=== PATIENT | female | born 1955 | race Caucasian/White ===

== ENCOUNTER 2017-07-22 16:07 | Inpatient (IN) | payer MEDICARE ==
[~2017-07-22] VITALS: Ht 157.5 cm; Wt 94.6 kg
[2017-07-22] MEDS ORDERED: VIBRAMYCIN 100100 MG PO (16:55)
[2017-07-22] MEDS ORDERED: OXYBUTYNIN CHLOR5 MG PO (16:56)
[2017-07-22 17:04] VITALS: BP 189/81; BMI 37.2
--- NOTE | 2017-07-22 18:15 | NUR ---
IV TO RIGHT FA. 22G. 1 STICK. WILL CONTINUE TO MONTIOR
--- NOTE | 2017-07-22 18:16 | NUR ---
WILL BRING UPDATED MEDICATION LIST TOMORROW.
[2017-07-22 18:42] LABS: BASOPHILS 0.5 % (0-2); EOSINOPHILS 5.2 % (0-7); HEMATOCRIT 40.6 % (36.0-48.0); HEMOGLOBIN 13.2 g/dL (12-16); IMMATURE GRANULOCYTES 0.4 % (0-5); LYMPHOCYTES 28.8 % (15-50); MCHC 32.5 g/dL (31.0-37.0); MCV 86.2 fL (80.0-100.0); MEAN PLATELET VOLUME 9.7 fL (7.4-10.4); MONOCYTES 6.2 % (2-11); NEUTROPHILS 58.9 % (40-80); PLATELET COUNT 214 10x3/uL (130-400); RBC 4.71 10x6/uL (4.00-5.40); RDW 15.5 % (11.5-14.5); WBC 7.9 10x3/uL (4.8-10.8)
[2017-07-22 18:55] LABS: ALBUMIN 3.4 g/dL (3.4-5.0); ANION GAP 15.8 mmol/L (8-16); BILIRUBIN - TOTAL 0.23 mg/dL (0.2-1.3); CALCIUM 8.8 mg/dL (8.5-10.1); CARBON DIOXIDE 21.5 mmol/L (21.0-32.0); CREATININE - SERUM 3.9 mg/dL (0.6-1.3); POTASSIUM - SERUM 4.3 mmol/L (3.5-5.1)
--- NOTE | 2017-07-22 19:33 | NUR ---
ASSESSMENT COMPLETE, A&O. VITALS STABLE. RESPERATIONS EVEN ON RA. IV TO RIGHT FOREARM WITH NS INFUSING AT 75 CC/HR. SITE CLEAN AND DRY. INFORMED PT THAT DR HUMMEL HAS ORDERED FOR A CALDWELL CATH TO BE PLACED, PT STATED THAT SHE IS URINATING JUST AND DOES NOT WANT A CATHETER PLACED. PT DENIES PAIN OR NEEDS, BED LOW, CL IN REACH.
[2017-07-22 20:00] VITALS: BP 151/63
--- NOTE | 2017-07-22 23:05 | NUR ---
TYLENOL 325 MG TAB GIVEN AT PT REQUEST FOR C/O HEADACHE, RATES PAIN AT A 6 ON PAIN SCALE.
--- NOTE | 2017-07-23 00:12 | NUR ---
ASSESSMENT UNCHANGED. VSS, AFEBRILE. RESP EVEN UNLABORED. NO NEEDS VOICED. WILL CONT TO MONITOR.
--- NOTE | 2017-07-23 03:15 | NUR ---
RESTING WITH EYES CLOSED, RESPERATIONS EVEN, NO S/S DISTRESS NOTED.
[2017-07-23 03:57] VITALS: BP 162/72
[2017-07-23 06:42] LABS: PHOSPHOROUS 3.5 mg/dL (2.5-4.9); URIC ACID 7.2 mg/dL (2.6-7.2)
[2017-07-23] MEDS ORDERED: HUMULIN R100 U/ML (08:42)
[2017-07-23] MEDS ORDERED: LANTUS INSULIN10 ML SC (08:43)
--- NOTE | 2017-07-23 09:00 | NUR ---
PATIENT CONTINUES TO REFUSE CALDWELL CATHETER INSERTION AT THIS TIME. NO DISTRESS.
[2017-07-23 09:34] VITALS: BP 174/87
--- NOTE | 2017-07-23 11:05 | NUR ---
1100 PATIENT REFUSED ALL MEDICATIONS STARTED BY . PATIENT IS CONFUSED. 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
--- NOTE | 2017-07-23 11:56 | NUR ---
FSBS 155. 2 UNITS INSULIN PROVIDED ORDERED.
[2017-07-23 12:28] VITALS: Ht 157.5 cm; Wt 94.6 kg
[2017-07-23 13:51] VITALS: BP 182/72
--- NOTE | 2017-07-23 14:14 | NUR ---
RESTING IN BED. NO DISTRESS. PATIENT REMAINS CONFUSED. CALL LIGHT WITHIN REACH.
--- NOTE | 2017-07-23 15:17 | NUR ---
HERE WITH PATIENTS CURRENT MED LIST, SPOKE WITH DEANN ON THE PHONE AND APPROPRIATE CHANGES APPROVED FOR MEDICATIONS.
--- NOTE | 2017-07-23 15:40 | NUR ---
16 FR CALDWELL CATHETER PLACED VIA STERILE TECHNIQUE. 150 CC CLEAR YELLOW URINE RETURNED TO DRAINAGE BAG VIA GRAVITY. SPECIMEN SENT TO LAB. PATIENT TOLERATED CALDWELL CATHETER PLACEMENT WELL. NO DISTRESS.
[2017-07-23 16:16] LABS: APPEARANCE HAZY (CLEAR); BILIRUBIN NEGATIVE (NEGATIVE); COLOR YELLOW (YELLOW); GLUCOSE 250 mg/dL (NEGATIVE); KETONE NEGATIVE (NEGATIVE); LEUKOCYTE ESTERASE NEGATIVE (NEGATIVE); NITRITE NEGATIVE (NEGATIVE); PROTEIN TRACE mg/dL (NEGATIVE); UROBILINOGEN NORMAL (NORMAL)
[2017-07-23 16:22] LABS: AMORPHOUS SEDIMENT >1+ /lpf (NONE SEEN); BACTERIA FEW /hpf (NONE SEEN); EPITHELIAL CELLS 0-5 /hpf (0-5); GRANULAR CAST RARE /lpf (NONE SEEN); HYALINE CAST OCC /lpf (NONE SEEN); MUCUS <1+ /lpf (NONE SEEN); RED CELLS - URINE 0-5 /hpf (0-5); WHITE CELLS - URINE 0-5 /hpf (0-5)
--- NOTE | 2017-07-23 16:44 | NUR ---
FSBS 132. NO INSULIN COVERAGE REQUIRED.
[2017-07-23 16:53] VITALS: BP 181/76
[2017-07-23 19:00] VITALS: BP 142/111
--- NOTE | 2017-07-23 20:54 | NUR ---
PT RESTING IN BED, WATCHING TV. NEW REMOTE PROVIDED OLD REMOTE HAD NO SOUND. BEDTIME MEDS GIVEN. FSBS 196. LANTUS 20 UNITS AND HUMALOG 2 UNITS ADMINISTERED. IVF NS @ 50 INFUSING TO RFA. NONLABORED RESPIRATIONS ON ROOM AIR. SEE SHIFT ASSESSMENT. CPOC.
[2017-07-24] VITALS: BP 150/58
--- NOTE | 2017-07-24 01:30 | NUR ---
PT RESTING WITH NO DISTRESS. IVF INFUSING. CPOC.
[2017-07-24 06:19] LABS: BASOPHILS 0.6 % (0-2); EOSINOPHILS 5.9 % (0-7); HEMATOCRIT 35.5 % (36.0-48.0); HEMOGLOBIN 11.5 g/dL (12-16); IMMATURE GRANULOCYTES 0.1 % (0-5); MCH 27.7 pg (26.0-34.0); MCHC 32.4 g/dL (31.0-37.0); MCV 85.5 fL (80.0-100.0); MEAN PLATELET VOLUME 9.8 fL (7.4-10.4); MONOCYTES 8.4 % (2-11); PLATELET COUNT 221 10x3/uL (130-400); RBC 4.15 10x6/uL (4.00-5.40); RDW 15.7 % (11.5-14.5); WBC 7.9 10x3/uL (4.8-10.8)
[2017-07-24 06:29] LABS: CALCIUM 7.8 mg/dL (8.5-10.1); CARBON DIOXIDE 21.2 mmol/L (21.0-32.0); CREATININE - SERUM 3.1 mg/dL (0.6-1.3); POTASSIUM - SERUM 4.2 mmol/L (3.5-5.1)
--- NOTE | 2017-07-24 07:00 | NUR ---
RECEIVED REPORT. ASSUMED CARE OF PATIENT. PATIENT RESTING IN SUPINE POSITION WITH EYES CLOSED. RESP EVEN AND UNLABORED. EASILY AROUSED. NO DISTRESS. CALDWELL CATHETER PATENT.
[2017-07-24 08:13] VITALS: BP 191/95
--- NOTE | 2017-07-24 11:15 | NUR ---
PATIENT PULLED 22 GAUGE IV OUT OF RIGHT FOREARM AND STATES SHE DOESN'T KNOW HOW IT HAPPENED. CATHETER TIP INTACT. NO BLEEDING FROM SITE. CLEANSED DRIED BLOOD FROM FOREARM. NO DISTRESS.
--- NOTE | 2017-07-24 11:42 | NUR ---
CALDWELL CATHETER REMOVED AT THIS TIME. PATIENT TOLERATED REMOVAL OF F/C WELL. WILL NEED TO VOID BY 1740. PATIENT VERBALIZED HER UNDERSTANDING.
--- NOTE | 2017-07-24 11:42 | NUR ---
FSBS 140. NO COVERAGE REQUIRED.
[2017-07-24 11:58] VITALS: BP 171/65
--- NOTE | 2017-07-24 14:30 | NUR ---
MEDICATED FOR HEADACHE. NO ACUTE DISTRESS.
--- NOTE | 2017-07-24 14:36 | NUR ---
IV 20 g started in right AC, patient tolerated well.
[2017-07-24 15:40] VITALS: BP 171/72
--- NOTE | 2017-07-24 16:53 | NUR ---
FSBS 197. 2 UNITS HUMALOG ADMINISTERED PER SLIDING SCALE.
--- NOTE | 2017-07-24 17:19 | NUR ---
22 GAUGE IV PLACED TO LEFT HAND X 1 STICK. GOOD BLOOD RETURN, EASY FLUSH. TOELRATED IV PLACEMENT WELL. IV FLUIDS AND ABX INFUSING ORDERED AT THIS TIME. TAPED, DATED AND SECURED. NO DISTRESS. FAMILY AT BEDSIDE.
--- NOTE | 2017-07-24 17:21 | NUR ---
WHILE PLACING IV TO PATIENTS LEFT HAND, PATIENTS IN ROOM STATING HE FELT CLAMY AND FLUSHED, NOT FEELING WELL. ASKED PATIENTS IF HE WOULD LIKE TO BE TAKEN TO EMERGENCY DEPARTMENT FOR EVALUATION AND PATIENT REFUSED.
[2017-07-24 19:20] VITALS: BP 189/84
--- NOTE | 2017-07-24 19:30 | NUR ---
PT RESTING IN BED WITH NO DISTRESS. IVF INFUSING TO LEFT HAND, NS @ 50ML/HR. ALSO HAS A SALINE LOCK TO RIGHT A/C. NONLABORED RESPIRATIONS ON ROOM AIR. PAULETTE WAS DC'D ON PREVIOUS SHIFT AND PT HAS NOW BEEN UP TO BATHROOM AND VOIDED SEVERAL TIMES . SEE SHIFT ASSESSMENT. MONITOR AND CPOC.
[2017-07-25 00:40] VITALS: BP 183/67
[2017-07-25 04:30] VITALS: BP 173/81
[2017-07-25 06:18] LABS: BASOPHILS 0.5 % (0-2); EOSINOPHILS 5.5 % (0-7); HEMATOCRIT 40.3 % (36.0-48.0); IMMATURE GRANULOCYTES 0.2 % (0-5); LYMPHOCYTES 29.1 % (15-50); MCH 27.7 pg (26.0-34.0); MCHC 32.3 g/dL (31.0-37.0); MCV 85.9 fL (80.0-100.0); MEAN PLATELET VOLUME 9.5 fL (7.4-10.4); MONOCYTES 6.6 % (2-11); NEUTROPHILS 58.1 % (40-80); PLATELET COUNT 246 10x3/uL (130-400); RBC 4.69 10x6/uL (4.00-5.40); RDW 15.5 % (11.5-14.5); WBC 9.2 10x3/uL (4.8-10.8)
[2017-07-25 06:42] LABS: CALCIUM 8.1 mg/dL (8.5-10.1); CARBON DIOXIDE 20.1 mmol/L (21.0-32.0); CREATININE - SERUM 3.2 mg/dL (0.6-1.3); PHOSPHOROUS 3.7 mg/dL (2.5-4.9); POTASSIUM - SERUM 4.1 mmol/L (3.5-5.1)
--- NOTE | 2017-07-25 07:28 | NUR ---
AM ROUNDS- PT IN BED, REFUSED TO HAVE 2 UNITS OF INSULIN FOR BLOOD SUGAR OF 196. PT DENIES ANY NEEDS AT THIS TIME. RT AC SL, RESP EVEN AND UNLABORED. BED LOW AND WHEELS LOCKED, BEDSIDE RAILS X2, CALL LIGHT IN REACH, NAD NOTED, WILL CONTINUE TO MONITOR.
[2017-07-25 08:00] VITALS: BP 162/70
--- NOTE | 2017-07-25 08:49 | NUR ---
AM MEDS GIVEN. PT IN BED, WATCHING TV, DENIES ANY NEEDS AT THIS TIME. CALL LIGHT IN REACH, NAD NOTED, WILL CONTINUE TO MONITOR.
--- NOTE | 2017-07-25 09:43 | NUR ---
Patient Name: JEET ROBERTSON Admission Status: Urgent Accout number: [id number] Admission Date: 07-22-2017 : 1955 Admission Diagnosis: Attending: Helio Sanabria Current LOS: 3 Anticipated DC Date: 07-25-2017 Planned Disposition: Home Primary Insurance: [facility] Discharge Planning Comments: * Is the patient Alert and Oriented? Yes 0 * How many steps to enter\exit or inside your home? 4 0 * PCP HAND ROUNDER NITHYA MORENO [place]. 0 * Pharmacy [facility] [place] 0 * Preadmission Environment Home with Family 0 * ADLs Independent 0 * Equipment Tub Bench Walker Wheelchair 0 * Other Equipment NO MEDICAL EQUIPMENT PROVIDER REFERENCE 0 * List name and contact numbers for known caregivers / representatives who currently or will assist patient after discharge: POP ROBERTSON, SPOUSE, 0 * Community resources currently utilized None 0 * Please name any agencies selected above. NONE 0 * Additional services required to return to the preadmission environment? No 0 * Can the patient safely return to the preadmission environment? Yes 0 * Has this patient been hospitalized within the prior 30 days at any hospital? No 0 CM MET WITH PT IN ROOM TO DISCUSS DISCHARGE PLANNING AND NEEDS. PT REPORTS LIVING AT HOME INDEPENDENTLY WITH HER SPOUSE. PT HAS TUB BENCH, WALKER AND WHEELCHAIR WITH NO MEDICAL EQUIPMENT PROVIDER PREFERENCE. PT HAS NO OUTSIDE SERVICES ASSISTING IN THE HOME. CM DISCUSSED AVAILABILITY OF HOME HEALTH, REHAB SERVICES AND MEDICAL EQUIPMENT. PT HAS HAD HOME HEALTH IN THE PAST, DENIES DISCHARGE NEEDS, REPORTS HER SPOUSE WILL PICK HER UP FOR DISCHARGE HOME AFTER LUNCH TODAY. IMPORTANT MESSAGE FROM MEDICARE PROVIDED AND EXPLAINED. Pelletizer Tender: Hao Sapp
--- NOTE | 2017-07-25 11:50 | NUR ---
PROVIDED VERBAL AND WRITTEN D/C TEACHING TO PT. PT VERBALIZED UNDERSTANDING REGARDING TEACHING. D/C RT AC, AND LT HAND IV, TIPS INTACT. BLOOD SUGAR OF 287, 6UNITS OF HUMALOG GIVEN PER S/S. PT UP TO CHAIR, DENIES ANY NEEDS AT THIS TIME. WILL CALL WHEN RIDE GETS HERE, NAD NOTED, WILL CONTINUE TO MONITOR.
--- NOTE | 2017-07-25 12:31 | NUR ---
PT LEFT UNIT VIA WHEELCHAIR, ACCOMPANIED BY , NAD NOTED.
--- NOTE | 2017-07-28 07:00 | DS ---
PATIENT:JEET ROBERTSON :[birth year] MEDICAL RECORD: [id number] DISCHARGE SUMMARY ADMISSION DATE: 07/22/17 DISCHARGE DATE: 07/25/17 REASON FOR ADMISSION: 1. Acute kidney injury on chronic kidney disease. 2. Cystitis on admission, but negative urine culture. HOSPITAL COURSE: This is a 62-year-old female that has baseline creatinine between 2.5 and 3, had a creatinine up over 6, was admitted for IV antibiotics. Her urine culture did not grow any bacteria, treated with Rocephin, but we will continue Omnicef as an outpatient. There is some confusion with her medications, but I asked her to continue vitamin D, Pepcid, Neurontin, Ditropan, her insulin, Plavix, acetaminophen on discharge and follow up with our nurse practitioner in our clinic. She is alert and oriented times 4. Normocephalic, atraumatic. Clear nares. Clear throat. No JVD or thyromegaly. No change in neurological exam. Blood pressure was 173/81, but she assured me that it is better at home and will have to follow this up at home as well as I think we are missing a couple of her home medications. We will need to follow up for her mildly elevated kappa/lambda ratio, but it is followed in our clinic and has had testing previously, stable on discharge. Continue renal diet. Follow up with Dr. Magana, return for any problems. She indicated that she needed to go home today as her having to drive 2 hours. We have repeated her urine culture and let her creatinine come down further. Stable on discharge. TRANSINT:[id number] Voice Confirmation ID: [id number] DOCUMENT ID: [id number] SIDNEY HUMMEL MD at 0700 CC: [id number] DICTATION DATE: 07/25/17 0842 SITE WORKER: 07/26/17 0115 DIS IN 07/25/17 [facility] [address] [id number]
== END 2017-07-25 12:31 | disposition home or self-care (01) | DRG 689 ==
LOC: D.M2 16:07
PROVIDERS: ADMIT Internal Medicine Nephrology
PROC: 0T9B70Z Drainage of Bladder with Drainage Device, Via Natural or Artificial Opening (ICD-10-PCS; principal; 2017-07-22)
DX: N30.00 Acute cystitis without hematuria (principal); N17.0 Acute kidney failure with tubular necrosis; N18.4 Chronic kidney disease, stage 4 (severe); E11.22 Type 2 diabetes mellitus with diabetic chronic kidney disease; I12.9 Hypertensive chronic kidney disease with stage 1 through stage 4 chronic kidney disease, or unspecified chronic kidney disease; E11.40 Type 2 diabetes mellitus with diabetic neuropathy, unspecified; E86.0 Dehydration; Z86.73 Personal history of transient ischemic attack (TIA), and cerebral infarction without residual deficits